=== PATIENT | male | born 1930 | race Caucasian/White ===

== ENCOUNTER → 2018-06-02 | Outpatient (CLI) | payer MEDICARE, OTHER ==
--- NOTE | 2018-06-02 09:42 | RADIOLOGY REPORT (SQ) ---
EXAM DESCRIPTION: COOKIE SWALLOW COMPLETED DATE/TIME: 06/02/2018 9:00 am REASON FOR STUDY: COUGH (R05), ASPIRATION PNEUMONIA (J69.0) J69.0 PNEUMONITIS DUE TO INHALATION OF FOOD AND VOMIT R05 COUGH COMPARISON: None. TECHNIQUE: Videofluoroscopic swallowing examination was performed in conjunction with speech patholo gy. Videofluoroscopic imaging was obtained and reviewed and these are the findings: RADIATION DOSE: Fluoro time 1.26 minutes 1 images saved to PACS. LIMITATIONS: None FINDINGS: The patient was brought into the fluoro room and placed upright on a modified barium swall ow chair. The patient was then given multiple consistencies mixed with barium to swallow under live fluoroscopic video guidance. According to the Speech Pathologist there was no penetration or aspirat ion. Please refer to speech pathology report for further details. IMPRESSION: NO EVIDENCE OF PENETRATION OR ASPIRATION.PLEASE SEE SPEECH PATHOLOGIST REPORT FOR OTHER FINDINGS AND RECOMMENDATIONS. COMMENT: None Quality ID [id number]: Final reports for procedures using fluoroscopy that document radiation exposure bruna sandoval, or exposure time and number of fluorographic images (if radiation exposure indices are not avail able) TECHNICAL DOCUMENTATION: JOB ID: [id number] [employer]- All Rights Reserved Reading location - IP/workstation name: [email or web address] [id number]
--- NOTE | 2018-06-02 10:00 | ST Modified Barium Swallow ---
Recommendation - Recommendations Recommendations: Recommend dry swallows during meals to reduce residue. No diet change recommendations indicated at this time. Medical Diagnoses - Medical Diagnoses Medical Diagnosis Description & ICD-10 Code(s): R05 cough, J69.0 aspiration pneumonia, R13.10 dysphagia Other Medical Diagnoses/Co-Morbidities: per patient report no significant history of respiratory or GI issues, no history of CVA or head/neck related injury of surgery. ST Modified Barium Swallow - General Date: 06/02/18 Referring Physician: Dr. Carcamo Risks/Precautions: None Date of Onset: 03/30/18 - approximate onset date Reason for Referral: pneumonia - History History obtained from: Patient -: Medical - Patient arrived independently and acted as his own historian. Per patient report, foods and liquids will "go down wrong" approximately 1x per day. He reports recently coughing with thick dark mucus being expelled, but states that this has stopped since his doctor gave him augmentin. Patient reports most recent pneumonia was last winter, does not report frequent pneumonia or bronchitis. Medications: per patient report: crestor, donapezil, foltanx, ipratopium, rosuvestatin, naproxen. Allergies: none reported - Functional Status Prior Functional Status: INDEPENDENT: feeding - independent Current Functional Limitations: feeding - occasional coughing - Subjective Patient/caregiver goal(s): r/o aspiration Cognitive-Linguistic Function: WNL Speech Intelligibility: WNL Current Nutritional Means: PO Current PO diet: Regular Current symptoms: Coughing, Pneumonia Pain: Patient reports, 0/5 - Objective Assessment: Upright, Left Lateral - Food Trials Used Food trials used: Thin liquids, Pureed, Regular The patient: Was Able to Self Feed - Oral-Motor Skills Dentition: Full Laryngeal Function: Volitional Cough - WNL, Volitional Swallow - WNL - Assessment Oral prep: Normal Labial closure: Adequate Leakage: None Mastication: Adequate Lingual Movement: Normal Oral stage: Normal for this Procedure - Pharyngeal Stage Initiation of Pharyngeal Stage Reflex: Normal Decreased laryngeal elevation: No Reduced Velopharyngeal Closure: no Reduced pressure generation: No reduced tongue-based retraction: No Pre-swallow pooling in valleculae: Mild Pre-Swallow pooling in pyriforms: None Reduced Thyro-Hyoid approximation: No Reduced epiglottic excursion: No Reduced pharyngeal peristalsis/contraction: No Multiple Swallows with: Cleared w/ Dry Swallow Post-swallow residulas vallecular: Mild Post-Swallow residuals in pyriforms: Mild - with pudding trials only Reduced Cricopharyngeal opening: No - Fall Risk Assessment Medications/Conditions that increase fall risks include: Antidepressants, sedatives, anti-arrhythmic, diuretic, benzodiazipenes, neuroleptics. BP regulation problems, cardiac problems, balance or gait deficits, neurological problems. Fall Risk Actions Taken: No action needed - Behavioral Observations During evaluation process patient: was pleasant, was cooperative, able to answer questions - Treatment / Educational Needs: Treatment/Education Needs: Treatment consisted of patient education on the role of the Speech Pathologist. Patient's plan of care and golas were communicated as well as scheduling and attendance policies. Recommendations for initial home program were shared. Patient demonstrated understanding and verbalized agreement. - Impression/Summary Laryngeal Penetration: No Tracheal Aspiration: no Effective compensatory strategies: hard swallow - cleared residue Patient presents with: Normal swallow at eval Risk of Aspiration: Minimal Evaluation and Findings: Patient presents with overall normal swallow function. Mild valleculae and pyriform sinus residue seen with solid trials, however, this cleared easily with dry hard swallow. No signs of aspiration or penetration on this study. - Recommendations NPO: no Solid diet recommendations: Regular Liquid Diet Modification: Thin Pt/Family education and followup with MD: Yes Dysphagia therapy with HOUSE SUPERINTENDENT: no Recommended techniques: Fully Upright During Meal, Dry Swallow After Bite, Small Bites and Sips Supervision: Independent Information, Precautions and Recommendations: Patient (Written), Patient (Verbal ) - Plan of Care Strategies to optimize patient understanding include:: ongoing assessment of educational needs, implementation of educational strategies, and re-education. - - -: Thank you for the opportunity to work with this patient and his/her family. Should you have any questions about this patient's plan or progress, I can be reached at [phone]. Charge G Code? - - -: Yes ST F.L. Impairment Category - Rationale Based On Rationale Based On: Clin Find., Obj Measures - Swallowing Current G8996: CH 0% Impaired Goal G8997: CH 0% Impaired Discharge G8998: CH 0% Impaired
== END ==
LOC: RAD 07:29
PROVIDERS: ATTEND Internal Medicine Pulmonary Disease
DX: J69.0 Pneumonitis due to inhalation of food and vomit (principal); R05 Cough; R13.10 Dysphagia, unspecified
CPT/HCPCS: 74230; 92611; G8996; G8997; G8998

== ENCOUNTER 2019-02-28 23:33 | Emergency (ER) | payer MEDICARE, OTHER ==
[2019-03-01] MEDS ORDERED: OXYMETAZOLINE HCL 0.05% NASAL SPRAY 15 ML BOTTLE ONE (00:52)
--- NOTE | 2019-03-01 01:08 | ER Document Report ---
ED General - General Chief Complaint: Nose Bleed Stated Complaint: NOSE BLEED Time Seen by Provider: 03/01/19 00:37 Primary Care Provider: SUMAN MATHIAS DO [Primary Care Provider] - Follow up as needed Notes: Patient is an 89-year-old male with past medical history of atrial fibrillation anticoagulated on [employer] abandoned, presents from nursing facility due to concerns of epistaxis from the left nostril. Started approximately 3 hours ago and has been ongoing since that time. Direct pressure applied with no relief. No clear trigger. No history of similar bleeds in the past. Patient denies any difficult he breathing, difficulty swallowing. No trauma to the nose. No fever or constitutional symptoms. Does arrive by EMS. Regards symptoms as being severe. TRAVEL OUTSIDE OF THE [place] IN LAST 30 DAYS: No Past Medical History - General Information source: Patient - Social History Smoking Status: Former Smoker Frequency of alcohol use: Occasional Drug Abuse: None Lives with: Intermediate Family History: Reviewed & Not Pertinent Patient has suicidal ideation: No Patient has homicidal ideation: No Renal/ Medical History: Denies: Hx Peritoneal Dialysis Review of Systems - Review of Systems Notes: Constitutional: Negative for fever. HENT: Positive for left-sided epistaxis Eyes: Negative for visual changes. Cardiovascular: Negative for chest pain. Respiratory: Negative for shortness of breath. Gastrointestinal: Negative for abdominal pain, vomiting or diarrhea. Genitourinary: Negative for dysuria. Musculoskeletal: Negative for back pain. Skin: Negative for rash. Neurological: Negative for headaches, weakness or numbness. 10 point ROS negative except as marked above and in HPI. Physical Exam - Vital signs Vitals: Temp Pulse Resp BP 97.1 F 54 L 16 172/61 H 02/28/19 23:34 02/28/19 23:34 02/28/19 23:34 02/28/19 23:34 Interpretation: Hypertensive Notes: PHYSICAL EXAMINATION: GENERAL: Elderly male in no distress HEAD: Atraumatic, normocephalic. EYES: Pupils equal round and reactive to light, extraocular movements intact, sclera anicteric, conjunctiva are normal. ENT: Mildly brisk epistaxis from the left nostril, left nostril is completely occluded by a large clot, oropharynx clear without exudates. Moist mucous membranes. NECK: Normal range of motion, supple without lymphadenopathy LUNGS: Breath sounds clear to auscultation bilaterally and equal. No wheezes rales or rhonchi. HEART: Irregularly irregular bradycardia without murmurs ABDOMEN: Soft, nontender, normoactive bowel sounds. No guarding, no rebound. No masses appreciated. EXTREMITIES: Normal range of motion, no pitting or edema. No cyanosis. NEUROLOGICAL: No focal neurological deficits. Moves all extremities spontaneously and on command. PSYCH: Alert, oriented to person and place SKIN: Warm, Dry, normal turgor, no rashes or lesions noted. Course - Re-evaluation Re-evalutation: 03/01/19 01:07 Patient presents with a moderately brisk bleed from the left nose. A large clot measuring approximately 4 inches was extracted from the nostril. After this clot was removed the nasal cavity was evaluated using an otoscope. I did visualize a small area of what appeared to be an abrasion that was bleeding. Silver nitrate was applied to the area with successful cauterization. No indication for labs. Patient is otherwise well in appearance. Will plan for discharge back to the nursing facility. 03/01/19 03:56 Shortly after transport arrived patient began having recurrent epistaxis. TXA was atomized and this likewise did not resolve the bleeding. There again was a small area that appeared to continuously bleed and silver nitrate stick was applied again with unsuccessful termination. At this point a 5.5 cm nasal rocket was introduced although despite multiple times I could not successfully placed the entirety of the Rhino Rocket into the nasal passage only being able to insert about 1/2 cm before meeting significant resistance despite going at multiple angles of insertion. This did however successfully terminate the bleed. Patient will be started on cephalexin prophylaxis. - Vital Signs Vital signs: Temp Pulse Resp BP Pulse Ox 97.8 F 58 L 20 141/63 H 99 03/01/19 03:20 03/01/19 03:20 03/01/19 03:20 03/01/19 03:20 03/01/19 03:20 Discharge - Discharge Clinical Impression: Epistaxis, Anticoagulated Condition: Good Disposition: HOME, SELF-CARE Additional Instructions: Your nasal packing placed today. This should be removed in 24 to 48 hours by deflating the cuff and gently pulling on the end of the packing. Take antibiotics as prescribed. Please also return if you pass out, have significant pain of the nose or face, began bleeding around the packing, or any other symptoms that are concerning to you. Your primary care doctor regarding today's visit. Prescriptions: Cephalexin Monohydrate [Keflex 500 mg Capsule] 500 mg PO Q6H 5 Days capsule Referrals: SUMAN MATHIAS DO [Primary Care Provider] - Follow up as needed MARIAELENA SHEN DO [ASSOCIATE] - Follow up in 3-5 days
[2019-03-01 03:22] VITALS: BP 141/63
[2019-03-01] MEDS ORDERED: TRANEXAMIC ACID INJ/PF 1,000 MG/10 ML SDV IV ONE (03:37)
[2019-03-01] MEDS ORDERED: CEPHALEXIN 500 MG CAPSULE PO ONE (03:57)
== END 2019-03-01 04:02 | disposition home or self-care (01) ==
LOC: ER 23:33
DX: R04.0 Epistaxis (principal); I48.91 Unspecified atrial fibrillation; Z79.01 Long term (current) use of anticoagulants; Z87.891 Personal history of nicotine dependence
CPT/HCPCS: 99284; 30901; A9270; J3490

== ENCOUNTER 2019-03-01 09:19 | Emergency (ER) | payer MEDICARE, OTHER ==
--- NOTE | 2019-03-01 10:28 | ER Document Report ---
ED ENT - General Chief Complaint: Nose Bleed Stated Complaint: NOSE BLEED Time Seen by Provider: 03/01/19 10:27 Primary Care Provider: SUMAN MATHIAS DO [Primary Care Provider] - Follow up as needed TRAVEL OUTSIDE OF THE [place] IN LAST 30 DAYS: No - Related Data Allergies/Adverse Reactions: No Known Allergies Allergy (Unverified 03/01/19 09:44) Past Medical History - Social History Family History: Reviewed & Not Pertinent Renal/ Medical History: Denies: Hx Peritoneal Dialysis Physical Exam - Vital signs Vitals: Temp Pulse BP Pulse Ox 97.3 F 61 167/78 H 94 03/01/19 11:02 03/01/19 11:02 03/01/19 11:02 03/01/19 11:02 Course - Vital Signs Vital signs: Temp Pulse Resp BP Pulse Ox 97.3 F 61 167/78 H 100 03/01/19 11:02 03/01/19 11:02 03/01/19 11:02 03/01/19 11:02 - Laboratory Result Diagrams: 03/01/19 11:07 03/01/19 11:07 Laboratory results interpreted by me: 03/01/19 03/01/19 03/01/19 11:07 11:07 11:07 RBC 3.62 L Hgb 10.8 L Hct 32.8 L RDW 18.5 H Band Neutrophils % 2 L Monocytes % (Manual) 21 H PT 16.5 H APTT 36.0 H BUN 21 H Total Bilirubin 1.4 H Discharge - Discharge Clinical Impression: Epistaxis Condition: Good Disposition: HOME, SELF-CARE Additional Instructions: f/u with ENT in 1-3 days to have the nasal packing removed. continue to take your meds prescribed. continue to take the keflex you were given last night. return for any continued rebleeding that won't stop or any other concerning symptoms. Referrals: SUMAN MATHIAS DO [Primary Care Provider] - Follow up as needed MARIAELENA SHEN DO [ASSOCIATE] - Follow up tomorrow [facility] [Provider Group] - Follow up tomorrow BEHZAD FRANCO MD [ACTIVE STAFF] - Follow up tomorrow
[2019-03-01 11:19] LABS: HEMATOCRIT 32.8 % (37.9-51.0); HEMOGLOBIN 10.8 g/dL (13.5-17.0); MEAN CORPUSCULAR HEMOGLOBIN 29.8 pg (27.0-33.4); MEAN CORPUSCULAR HGB CONC 32.9 g/dL (32.0-36.0); MEAN CORPUSCULAR VOLUME 91 fl (80-97); PLATELET COUNT 238 10^3/uL (150-450); RED BLOOD COUNT 3.62 10^6/uL (4.35-5.55); RED CELL DISTRIBUTION WIDTH 18.5 % (11.5-14.0); WHITE BLOOD COUNT 6.4 10^3/uL (4.0-10.5)
[2019-03-01 11:24] LABS: INTERNATIONAL RATION (INR) 1.32
[2019-03-01 11:28] LABS: PROTHROMBIN TIME 16.5 SEC (11.4-15.4)
[2019-03-01 11:44] LABS: ALANINE AMINOTRANSFERASE 29 U/L (21-72); ALBUMIN 4.2 g/dL (3.5-5.0); ALKALINE PHOSPHATASE 59 U/L (38-126); ANION GAP 11 (5-19); ASPARTATE AMINO TRANSFERASE 24 U/L (17-59); BILIRUBIN,DIRECT 0.2 mg/dL (0.0-0.4); BILIRUBIN,TOTAL 1.4 mg/dL (0.2-1.3); BLOOD UREA NITROGEN 21 mg/dL (7-20); CARBON DIOXIDE 26 mmol/L (22-30); CHLORIDE 105 mmol/L (98-107); GLUCOSE 84 mg/dL (75-110); POTASSIUM 4.7 mmol/L (3.6-5.0); TOTAL PROTEIN 6.6 g/dL (6.3-8.2)
[2019-03-01 11:54] LABS: ABSOLUTE LYMPHOCYTES# (MANUAL) 1.5 10^3/uL (0.5-4.7); ABSOLUTE MONOCYTES # (MANUAL) 1.3 10^3/uL (0.1-1.4); BAND NEUTROPHILS % (MANUAL) 2 % (3-5); BASOPHILS % (MANUAL) 0 % (0-2); EOSINOPHILS % (MANUAL) 1 % (0-6); LYMPHOCYTES % (MANUAL) 24 % (13-45); MONOCYTES % (MANUAL) 21 % (3-13); SEGMENTED NEUTROPHILS % (MAN) 52 % (42-78); TOTAL CELLS COUNTED 100
[2019-03-01 11:59] LABS: POIKILOCYTOSIS SLIGHT; POLYCHROMASIA SLIGHT
[2019-03-01 12:00] LABS: ANISOCYTOSIS SLIGHT; PLATELET COMMENT ADEQUATE
[2019-03-01 15:00] VITALS: BP 148/66
== END 2019-03-01 14:55 | disposition home or self-care (01) ==
LOC: ER 09:19
DX: R04.0 Epistaxis (principal); I48.91 Unspecified atrial fibrillation; Z79.01 Long term (current) use of anticoagulants; Z87.891 Personal history of nicotine dependence
CPT/HCPCS: 36415; 80053; 85025; 85610; 85730; 99283